=== PATIENT | male | born 1965 ===

== ENCOUNTER 2017-02-20 09:25 | Emergency (ER) | payer MEDICAID, OTHER ==
[2017-02-20 09:55] VITALS: RESP 20; TEMP 97.9; BMI 28.5
--- NOTE | 2017-02-20 10:18 | ED PDOC ---
Arrival/HPI - General Chief Complaint: Shortness Of Breath Time Seen by Provider: 02/20/17 10:07 Historian: Patient - History of Present Illness Narrative History of Present Illness (Text): 02/20/17 10:08 51 y/o male, pmh including htn, nkda, c/o difficulty breathing started this morning. Pt. stated that he was at home this morning taking his usual antihypertensive medications which been taking it for years, feeling the nose is stuffy which progress to shortness of breath when breathing through the nose , no night sweat, mild coughing, no palpitation, no numbness or tingling, no change in vision, no abdominal pain, no other medical or psychological complaints. Past Medical History - Provider Review Nursing Documentation Reviewed: Yes - Cardiac Hx Cardiac Disorders: Yes Hx Hypertension: Yes - Pulmonary Hx Respiratory Disorders: No - Neurological Hx Neurological Disorder: No - HEENT Hx HEENT Disorder: No - Renal Hx Renal Disorder: No - Endocrine/Metabolic Hx Endocrine Disorders: No - Hematological/Oncological Hx Blood Disorders: No - Integumentary Hx Dermatological Disorder: No - Musculoskeletal/Rheumatological Hx Musculoskeletal Disorders: No - Gastrointestinal Hx Gastrointestinal Disorders: No - Genitourinary/Gynecological Hx Genitourinary Disorders: No - Psychiatric Hx Psychophysiologic Disorder: No Hx Depression: No Hx Emotional Abuse: No Hx Physical Abuse: No Hx Substance Use: No - Anesthesia Hx Anesthesia: No - Suicidal Assessment Feels Threatened In Home Enviroment: No Family/Social History - Physician Review Nursing Documentation Reviewed: Yes Family/Social History: Unknown Family HX Smoking Status: Never Smoked Hx Alcohol Use: Yes Frequency of alcohol use: Socially Hx Substance Use: No Hx Substance Use Treatment: No Allergies/Home Meds Allergies/Adverse Reactions: Allergies No Known Allergies Allergy (Verified 11/24/11 11:12) Home Medications: Home Meds Medication Instructions Recorded Confirmed Losartan Potassium 25 mg PO DAILY 02/20/17 02/20/17 amLODIPine [Norvasc] 5 mg PO DAILY 02/20/17 02/20/17 hydroCHLOROthiazide [Hydrodiuril] 25 mg PO DAILY 02/20/17 02/20/17 Review of Systems - Review of Systems Constitutional: absent: Fatigue, Fevers Eyes: absent: Vision Changes ENT: Sinus Congestion. absent: Hearing Changes, Sore Throat, Rhinorrhea Respiratory: absent: SOB, Cough Cardiovascular: absent: Chest Pain Gastrointestinal: absent: Abdominal Pain, Nausea, Vomiting Skin: absent: Rash, Pruritis Neurological: absent: Headache, Dizziness, Focal Weakness Psychiatric: absent: Anxiety, Depression, Suicidal Ideation Physical Exam Vital Signs Reviewed: Yes Vital Signs Temp Pulse Resp BP Pulse Ox 02/20/17 11:26 88 20 146/99 H 100 02/20/17 09:51 97.9 F 75 20 117/73 96 Temperature: Afebrile Blood Pressure: Normal Pulse: Regular Respiratory Rate: Normal Appearance: Positive for: Well-Appearing, Non-Toxic, Comfortable Pain Distress: None Mental Status: Positive for: Alert and Oriented X 3 - Systems Exam Head: Present: Atraumatic, Normocephalic, Other (+ttp on the maxillary sinus region. ) Pupils: Present: PERRL Extroacular Muscles: Present: EOMI Conjunctiva: Present: Normal Ears: Present: NORMAL TM, Normal Canal. No: Erythema Mouth: Present: Moist Mucous Membranes Pharnyx: No: ERYTHEMA, EXUDATE, TONSILS ENLARGED Neck: Present: Normal Range of Motion Respiratory/Chest: Present: Decreased Breath Sounds (bilaterally). No: Respiratory Distress, Accessory Muscle Use, Wheezes, Rales, Retracting, Rhonchi , Tachypneic Cardiovascular: Present: Regular Rate and Rhythm, Normal S1, S2. No: Murmurs Abdomen: Present: Normal Bowel Sounds. No: Tenderness, Distention, Peritoneal Signs Back: Present: Normal Inspection Upper Extremity: Present: Normal Inspection. No: Cyanosis, Edema Lower Extremity: Present: Normal Inspection. No: Edema Neurological: Present: GCS=15, Speech Normal, Motor Func Grossly Intact, Gait Normal, Memory Normal Skin: Present: Warm, Dry, Normal Color. No: Rashes Psychiatric: Present: Alert, Oriented x 3, Normal Insight, Normal Concentration Medical Decision Making ED Course and Treatment: 02/20/17 10:26 -labs -chest xray -ekg -IVF/toradol/benadryl/duoneb -observe and reassess 02/20/17 12:06 -EKG: NSR @ 73 BPM, no ST elevation or depression, no T wave inversion -Labs are non-significant -BNP and D-dimer within normal limit. -Chest xray show no active disease. -Pt. feels completely relief after the medication given in the ER, asymptomatic now, will discharge home. -Discharge home with zithromax, flonase, zyrtec, bed rest, prednisone, albuterol MDI, stay hydrated, bed rest, follow up with your own pmd and ENT within 2 days, return to the ER for any new or worsening signs or symptoms. - Lab Interpretations Lab Results: 02/20/17 10:30 02/20/17 10:30 Lab Results 02/20/17 10:30: WBC 3.4 L, RBC 4.28, Hgb 13.7 L, Hct 40.0 L, MCV 93.5, MCH 32.0 , MCHC 34.3, RDW 12.7, Plt Count 227, MPV 10.1, Gran % 28.4 L, Lymph % (Auto) 61.9 H, Summit % (Auto) 7.6 H, Eos % (Auto) 1.8, Baso % (Auto) 0.3, Gran # 0.97 L , Lymph # 2.1, Summit # 0.3, Eos # 0.1, Baso # 0.01 02/20/17 10:30: Sodium 139, Potassium 4.2, Chloride 100, Carbon Dioxide 29, Anion Gap 14, BUN 13, Creatinine 0.9, Est GFR ( Amer) > 60, Est GFR (Non- Af Amer) > 60, Random Glucose 104, Calcium 9.8, Total Bilirubin 0.4, AST 57, ALT 83 H, Alkaline Phosphatase 56, NT-Pro-B Natriuret Pep < 11.1, Total Protein 8.1, Albumin 4.6, Globulin 3.4, Albumin/Globulin Ratio 1.4 02/20/17 10:30: D-Dimer, Quantitative < 200 I have reviewed the lab results: Yes Interpretation: No clinic. lab abnormalty - RAD Interpretation Radiology Orders: 02/20/17 11:07 CHEST PORTABLE [RAD] Stat no active disease Medicine Aide: Radiologist - Medication Orders Current Medication Orders: Discontinued Medications Albuterol/Ipratropium (Duoneb 3 Mg/0.5 Mg (3 Ml) Ud) 3 ml IH STAT STA Stop: 02/20/17 10:20 Last Admin: 02/20/17 10:57 Dose: 3 ml Diphenhydramine HCl (Benadryl) 50 mg IVP STAT STA Stop: 02/20/17 10:21 Last Admin: 02/20/17 10:56 Dose: 50 mg IVP Administration Document 02/20/17 10:56 CNR (Rec: 02/20/17 10:57 CNR [facility] – [id number]) Charges for Administration # of IVP Administrations 1 Sodium Chloride (Sodium Chloride 0.9%) 500 mls @ 999 mls/hr IV .Q31M STA Stop: 02/20/17 10:50 Last Admin: 02/20/17 10:56 Dose: 999 mls/hr eMAR Start Stop Document 02/20/17 10:56 CNR (Rec: 02/20/17 10:56 CNR [facility] – [id number]) Intravenous Solution Start Date 02/20/17 Start Time 10:40 Ketorolac Tromethamine (Toradol) 30 mg IVP STAT STA Stop: 02/20/17 10:21 Last Admin: 02/20/17 10:57 Dose: 30 mg MAR Pain Assessment Document 02/20/17 10:57 CNR (Rec: 02/20/17 10:57 CNR [facility] – [id number]) Pain Reassessment Is this a pain reassessment? Yes IVP Administration Document 02/20/17 10:57 CNR (Rec: 02/20/17 10:57 CNR [facility] – [id number]) Charges for Administration # of IVP Administrations 1 - PA / COUNTER D[employer] CARRIER / Resident Statement MD/DO has reviewed & agrees with the documentation as recorded. Disposition/Present on Arrival - Present on Arrival Any Indicators Present on Arrival: No History of DVT/PE: No History of Uncontrolled Diabetes: No Urinary Catheter: No History of Decub. Ulcer: No History Surgical Site Infection Following: None - Disposition Have Diagnosis and Disposition been Completed?: Yes Diagnosis: URI (upper respiratory infection), Nasal congestion Disposition: HOME/ ROUTINE Disposition Time: 12:09 Patient Plan: Discharge Condition: GOOD Additional Instructions: -Discharge home with zithromax, flonase, zyrtec, bed rest, prednisone, albuterol MDI, stay hydrated, bed rest, follow up with your own pmd and ENT within 2 days, return to the ER for any new or worsening signs or symptoms. Prescriptions: Albuterol HFA [Ventolin HFA 90 mcg/actuation (8 g)] 2 puff IH [id number] #1 inh Azithromycin [Zithromax] 250 mg PO DAILY #6 tab Cetirizine HCl [Zyrtec] 10 mg PO DAILY #10 capsule Fluticasone Propionate [Flonase Allergy Relief] 1 spray NS DAILY #1 spray.susp Prednisone 50 mg PO DAILY #5 tab Referrals: Pascual Goldberg DO [Staff Provider] - Follow up with primary Re Karimi MD [Staff Provider] - Follow up with primary Forms: WORK NOTE
[2017-02-20] MEDS ORDERED: Albuterol-Ipratrop 3 mg / 0.5 (3 ml) UD IH STA (10:19)
[2017-02-20] MEDS ORDERED: Sodium Chloride 0.9% 500 ML IV STA (10:20)
[2017-02-20] MEDS ORDERED: DiphenhydrAMINE 50 mg/ml Inj IVP STA (10:20)
[2017-02-20 10:45] LABS: BASO # 0.01 K/mm3 (0.0-2.0); BASO % 0.3 % (0.0-3.0); EOS # 0.1 (0.0-0.7); EOS % 1.8 % (1.5-5.0); GRAN # 0.97 (1.4-6.5); GRAN % 28.4 % (50.0-68.0); LYMPH # 2.1 (1.2-3.4); LYMPH % 61.9 % (22.0-35.0); MEAN CELL VOLUME 93.5 fl (80.0-105.0); MEAN CORPUSCULAR HGB CONC 34.3 g/dl (31.0-37.0); MEAN PLATELET VOLUME 10.1 fl (7.0-11.0); MONO # 0.3 (0.1-0.6); MONO % 7.6 % (1.0-6.0); RED CELL DISTRIBUTION WIDTH 12.7 % (11.5-14.5); WHITE BLOOD COUNT 3.4 10^3/ul (4.5-11.0)
[2017-02-20 10:52] LABS: ALB/GLOB RATIO 1.4 (1.1-1.8); ALKALINE PHOSPHATASE 56 U/L (38-126); ALT/SGPT 83 U/L (7-56); AST/SGOT 57 U/L (17-59); BILIRUBIN,TOTAL 0.4 mg/dL (0.2-1.3); BLOOD UREA NITROGEN 13 mg/dL (7-21); CALCIUM 9.8 mg/dL (8.4-10.5); CARBON DIOXIDE 29 mmol/L (21-33); CHLORIDE 100 mmol/L (98-107); GFR AFRICAN-AMERICAN > 60; GLUCOSE,RANDOM 104 mg/dL (70-110); POTASSIUM 4.2 mmol/L (3.6-5.0); SODIUM 139 mmol/L (132-148); TOTAL PROTEIN 8.1 g/dL (5.8-8.3)
[2017-02-20 12:02] VITALS: BP 146/99; PULSE 88; O2SAT 100
--- NOTE | 2017-02-20 12:20 | RAD ---
HISTORY: medical clearance COMPARISON: No prior. FINDINGS: LUNGS: No active pulmonary disease. PLEURA: No significant pleural effusion identified, no pneumothorax apparent. CARDIOVASCULAR: Normal. OSSEOUS STRUCTURES: No significant abnormalities. VISUALIZED UPPER ABDOMEN: Normal. OTHER FINDINGS: None. IMPRESSION: No active disease.
--- NOTE | 2017-02-21 00:15 | CARD ---
APPROVED REPORT EKG Measurement Heart [id number] <Conclusion> Normal sinus rhythm Normal ECG
== END 2017-02-20 12:24 | disposition home or self-care (01) ==
LOC: ED 09:25
DX: J06.9 Acute upper respiratory infection, unspecified (principal); R09.81 Nasal congestion; I10 Essential (primary) hypertension
CPT/HCPCS: 71010; 80053; 83880; 85025; 85378; 93005; 96374; 96375; 99284; J1200; J1885; J7040

== ENCOUNTER 2018-02-04 15:19 | Emergency (ER) | payer MEDICAID ==
[2018-02-04 15:19] VITALS: BMI 28.5
[2018-02-04 15:42] VITALS: BP 115/65; PULSE 64; RESP 18; TEMP 98.5; O2SAT 97
[2018-02-04] MEDS ORDERED: Lidocaine 5% Patch TD ONE (15:46)
--- NOTE | 2018-02-04 17:29 | ED PDOC ---
Arrival/HPI - General Chief Complaint: Back Pain Time Seen by Provider: 02/04/18 15:21 Historian: Patient, Family - History of Present Illness Narrative History of Present Illness (Text): 02/04/18 17:28 52 year old male who presents to the emergency department complaining of lower back pain that has been ongoing for the past month, but worsened today. Patient is primarily Cuban speaking, and agreed to have his family member translate for him. 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 His back pain occurs upon standing or when he starts to walk, but resolves after a minute of walking. He denies pain radiating to his lower extremities, and admits to urinating and having a normal bowel movement today. Patient denies fevers, chills, cough, shortness of breath, chest pain, dyspnea on exertion, abdominal pain, nausea, vomiting, diarrhea, neck pain, headache, dizziness, or any other complaint. Time/Duration: Other (1 month) Symptom Onset: Gradual Symptom Course: Worsening Activities at Onset: Light Context: Standing, Walking, Home, Work Past Medical History - Provider Review Nursing Documentation Reviewed: Yes - Infectious Disease Hx of Infectious Diseases: None - Cardiac Hx Cardiac Disorders: Yes Hx Hypertension: Yes - Pulmonary Hx Respiratory Disorders: No - Neurological Hx Neurological Disorder: No - HEENT Hx HEENT Disorder: No - Renal Hx Renal Disorder: No - Endocrine/Metabolic Hx Endocrine Disorders: No - Hematological/Oncological Hx Blood Disorders: No - Integumentary Hx Dermatological Disorder: No - Musculoskeletal/Rheumatological Hx Musculoskeletal Disorders: No - Gastrointestinal Hx Gastrointestinal Disorders: No - Genitourinary/Gynecological Hx Genitourinary Disorders: No - Psychiatric Hx Psychophysiologic Disorder: No Hx Depression: No Hx Emotional Abuse: No Hx Physical Abuse: No Hx Substance Use: No - Anesthesia Hx Anesthesia: No - Suicidal Assessment Feels Threatened In Home Enviroment: No Family/Social History - Physician Review Nursing Documentation Reviewed: Yes Family/Social History: No Known Family HX Smoking Status: Never Smoked Hx Alcohol Use: Yes Hx Substance Use: No Hx Substance Use Treatment: No Allergies/Home Meds Allergies/Adverse Reactions: Allergies No Known Allergies Allergy (Verified 02/04/18 15:45) Home Medications: Home Meds Medication Instructions Recorded Confirmed Losartan Potassium 50 mg PO DAILY 02/20/17 02/04/18 amLODIPine [Norvasc] 5 mg PO DAILY 02/20/17 02/04/18 hydroCHLOROthiazide [Hydrodiuril] 25 mg PO DAILY 02/20/17 02/04/18 Review of Systems - Physician Review All systems were reviewed & negative as marked: Yes - Review of Systems Constitutional: absent: Fevers, Night Sweats Respiratory: absent: SOB, Cough Cardiovascular: absent: Chest Pain, MELGAR Gastrointestinal: absent: Abdominal Pain, Constipation, Diarrhea, Nausea Genitourinary Male: absent: Frequency Musculoskeletal: Back Pain. absent: Neck Pain Neurological: absent: Headache, Dizziness Physical Exam Vital Signs Reviewed: Yes Vital Signs Temp Pulse Resp BP Pulse Ox 02/04/18 15:40 98.5 F 64 18 115/65 97 Temperature: Afebrile Blood Pressure: Normal Pulse: Regular Respiratory Rate: Normal Appearance: Positive for: Well-Appearing Mental Status: Positive for: Alert and Oriented X 3 - Systems Exam Head: Present: Atraumatic, Normocephalic Pupils: Present: PERRL Extroacular Muscles: Present: EOMI Conjunctiva: Present: Normal Mouth: Present: Moist Mucous Membranes Neck: Present: Normal Range of Motion Respiratory/Chest: Present: Clear to Auscultation, Good Air Exchange. No: Respiratory Distress, Accessory Muscle Use Cardiovascular: Present: Regular Rate and Rhythm, Normal S1, S2. No: Murmurs Abdomen: No: Tenderness, Distention, Peritoneal Signs Back: Present: Normal Inspection, Paraspinal Tenderness (lumbar paraspinal tenderness) Upper Extremity: Present: Normal Inspection. No: Cyanosis, Edema Lower Extremity: Present: Normal Inspection. No: Edema Neurological: Present: GCS=15, CN II-XII Intact, Speech Normal Skin: Present: Warm, Dry, Normal Color. No: Rashes Psychiatric: Present: Alert, Oriented x 3, Normal Insight, Normal Concentration Medical Decision Making ED Course and Treatment: 02/04/18 17:28 Impression: 52 year old male complaining of lower back pain, which worsened today. Differential Diagnosis included but are not limited to: Herniated disc Lumbar stenosis Plan: -- Valium -- Toradol -- Lidoderm -- Reassess and disposition Prior Visits: Notes and results from previous visits were reviewed. Progress Notes: - Medication Orders Current Medication Orders: Discontinued Medications Diazepam (Valium) 5 mg PO ONCE ONE; Protocol Stop: 02/04/18 15:47 Last Admin: 02/04/18 15:58 Dose: 5 mg Ketorolac Tromethamine (Toradol) 60 mg IM STAT STA Stop: 02/04/18 15:47 Last Admin: 02/04/18 15:57 Dose: 60 mg MAR Pain Assessment Document 02/04/18 15:57 EB (Rec: 02/04/18 15:[address]) Pain Reassessment Is this a pain reassessment? No Sleep Is patient sleeping during reassessment? No Presence of Pain Presence of Pain Yes Pain Scale Used Protocol: PSCALES Pain Scale Used Numeric Location Pain Location Body Site Back Description Intensity of Pain at present 8 IM Administration Charges Document 02/04/18 15:57 EB (Rec: 02/04/18 15:58 [facility]-) Charges for Administration # of IM Administrations 1 Lidocaine (Lidoderm) 1 ea TD ONCE ONE Stop: 02/04/18 15:47 Last Admin: 02/04/18 15:57 Dose: 1 ea MAR Transdermal Patch Site Document 02/04/18 15:57 EB (Rec: 02/04/18 15:[address]) Transdermal Patch Site Transdermal Patch Site Right Lower Back - Scribe Statement The provider has reviewed the documentation as recorded by the Scribdaniel Mooney Provider Scribe Attestation: All medical record entries made by the Scribe were at my direction and personally dictated by me. I have reviewed the chart and agree that the record accurately reflects my personal performance of the history, physical exam, medical decision making, and the department course for this patient. I have also personally directed, reviewed, and agree with the discharge instructions and disposition. Disposition/Present on Arrival - Present on Arrival Any Indicators Present on Arrival: No History of DVT/PE: No History of Uncontrolled Diabetes: No Urinary Catheter: No History of Decub. Ulcer: No History Surgical Site Infection Following: None - Disposition Have Diagnosis and Disposition been Completed?: Yes Diagnosis: Back pain Disposition: HOME/ ROUTINE Disposition Time: 17:27 Patient Plan: Discharge Condition: IMPROVED Discharge Instructions (ExitCare): Upper Back Pain (DC) Print Language: SLOVENIAN Additional Instructions: All medical record entries made by the Scribe were at my direction and personally dictated by me. I have reviewed the chart and agree that the record accurately reflects my personal performance of the history, physical exam, medical decision making, and the department course for this patient. I have also personally directed, reviewed, and agree with the discharge instructions and disposition. Prescriptions: Cyclobenzaprine [Cyclobenzaprine HCl] 10 mg PO PRN PRN #6 tab PRN Reason: Muscle Spasm Lidocaine 5% [Lidoderm] 1 each TP Q12 #6 patch Naproxen 500 mg PO BID #10 tab Referrals: Nury Guillen MD [Medical Doctor] - Follow up with primary [facility] [place] - Follow up with primary Forms: [facility] (Cuban), WORK NOTE
== END 2018-02-04 17:31 | disposition home or self-care (01) ==
LOC: ED 15:19
DX: M54.5 Low back pain (principal); I10 Essential (primary) hypertension
CPT/HCPCS: 96372; 99282; J1885

== ENCOUNTER 2018-06-30 12:16 | Emergency (ER) | payer MEDICAID ==
[2018-06-30 12:20] VITALS: BMI 29.0
[2018-06-30 12:24] VITALS: RESP 18; TEMP 97.7
[2018-06-30] MEDS ORDERED: Lidocaine 5% Patch TD STA (12:41)
--- NOTE | 2018-06-30 12:47 | ED PDOC ---
Arrival/HPI - General Chief Complaint: Back Pain Time Seen by Provider: 06/30/18 12:23 Historian: Patient, Family (Sister) - History of Present Illness Narrative History of Present Illness (Text): 06/30/18 12:50 53 y/o male with PMH of back pain and sciatica presents to the ED c/o left sided lower back pain x 7 years that worsened over the last week. Pain is sharp, worse with movement and lying flat. The pain radiates into his left buttock and down his left leg. States this is typical of his usual back pain. He has been doing more heavy lifting at his work over the last month. Has taken tylenol for pain without relief. Pt has not seen an orthopedic or his PMD for his back complaints. Pt did not take his home medications today. Denies fever, chills, abdominal pain, nausea, vomiting, urinary symptoms, numbness, weakness, paresthesias, saddle anesthesia, testicular pain/swelling, bowel/bladder incontinence, or any other associated symptoms. Past Medical History - Provider Review Nursing Documentation Reviewed: Yes - Infectious Disease Hx of Infectious Diseases: None - Cardiac Hx Cardiac Disorders: Yes Hx Hypertension: Yes - Pulmonary Hx Respiratory Disorders: No - Neurological Hx Neurological Disorder: No - HEENT Hx HEENT Disorder: No - Renal Hx Renal Disorder: No - Endocrine/Metabolic Hx Endocrine Disorders: No - Hematological/Oncological Hx Blood Disorders: No - Integumentary Hx Dermatological Disorder: No - Musculoskeletal/Rheumatological Hx Musculoskeletal Disorders: No - Gastrointestinal Hx Gastrointestinal Disorders: No - Genitourinary/Gynecological Hx Genitourinary Disorders: No - Psychiatric Hx Psychophysiologic Disorder: No Hx Depression: No Hx Emotional Abuse: No Hx Physical Abuse: No Hx Substance Use: No - Anesthesia Hx Anesthesia: No - Suicidal Assessment Feels Threatened In Home Enviroment: No Family/Social History - Physician Review Nursing Documentation Reviewed: Yes Family/Social History: No Known Family HX Smoking Status: Never Smoked Hx Alcohol Use: Yes Hx Substance Use: No Hx Substance Use Treatment: No Allergies/Home Meds Allergies/Adverse Reactions: Allergies No Known Allergies Allergy (Verified 02/04/18 15:45) Home Medications: Home Meds Medication Instructions Recorded Confirmed Losartan Potassium 50 mg PO DAILY 02/20/17 02/04/18 amLODIPine [Norvasc] 5 mg PO DAILY 02/20/17 02/04/18 hydroCHLOROthiazide [Hydrodiuril] 25 mg PO DAILY 02/20/17 02/04/18 Review of Systems - Review of Systems Constitutional: Normal. absent: Fevers ENT: Normal. absent: Sore Throat, Sinus Congestion Respiratory: Normal. absent: SOB, Cough Cardiovascular: Normal. absent: Chest Pain, Palpitations, Syncope Gastrointestinal: Normal. absent: Abdominal Pain, Stool Changes, Constipation, Diarrhea, Nausea, Vomiting, Appetite Changes Genitourinary Male: Normal. absent: Dysuria, Frequency, Hematuria, Urinary Output Changes Musculoskeletal: Back Pain, Other (left leg pain) Skin: Normal. absent: Rash, Cellulitis Neurological: Normal. absent: Headache, Dizziness Physical Exam Vital Signs Reviewed: Yes Vital Signs Temp Pulse Resp BP Pulse Ox 06/30/18 12:17 97.7 F 68 18 146/100 H 98 Temperature: Afebrile Blood Pressure: Hypertensive Pulse: Regular Respiratory Rate: Normal Appearance: Positive for: Well-Appearing, Non-Toxic, Comfortable Pain Distress: Mild Mental Status: Positive for: Alert and Oriented X 3 - Systems Exam Head: Present: Atraumatic, Normocephalic Pupils: Present: PERRL Extroacular Muscles: Present: EOMI Conjunctiva: Present: Normal Mouth: Present: Moist Mucous Membranes Neck: Present: Normal Range of Motion. No: Meningeal Signs, MIDLINE TENDERNESS, Paraspinal Tenderness Respiratory/Chest: Present: Clear to Auscultation, Good Air Exchange. No: Respiratory Distress, Accessory Muscle Use Cardiovascular: Present: Regular Rate and Rhythm, Normal S1, S2, Peripheal Pu lses Present Abdomen: Present: Normal Bowel Sounds. No: Tenderness, Distention, Peritoneal Signs, Rebound, Guarding Back: Present: Paraspinal Tenderness (left lower thoracic and lumbar), Pain with Leg Raise (pain to lower back on bilateral leg raise. L>R). No: CVA Tenderness, Midline Tenderness Upper Extremity: Present: Normal Inspection, Normal ROM, NORMAL PULSES, Neurovascularly Intact, Capillary Refill < 2s. No: Cyanosis, Edema, Temperature Abnormalties Lower Extremity: Present: Normal Inspection, CALF TENDERNESS (left), NORMAL PULSES, Normal ROM, Neurovascularly Intact, Capillary Refill < 2 s. No: Edema, Tenderness, Swelling, Temperature Abnormalties Neurological: Present: GCS=15, CN II-XII Intact, Speech Normal, Motor Func Grossly Intact, Normal Sensory Function, Gait Normal Skin: Present: Warm, Dry, Normal Color. No: Rashes Psychiatric: Present: Alert, Oriented x 3, Normal Insight, Normal Concentration, Normal Affect, Normal Mood Medical Decision Making ED Course and Treatment: 06/30/18 12:44 Initial Plan: * Left leg venous duplex * Lumbar spine XR * Left hip XR * UA * Toradol * Valium * Lidoderm Patch * Reassess and Disposition UA unremarkable Xrays show no acute pathology Venous duplex prelim read negative for DVT Patient reports complete resolution of symptoms with medication. Continues to deny saddle anesthesia, abdominal pain, numbness, weakness, parethesias, bowel/bladder incontinence. Advised PMD and orthopedic followup. Diagnostic testing results and plan of care discussed with patient. Strict instructions given regarding prescription use, importance of followup, and signs/symptoms to return to ER including worsening pain, saddle anesthesia, abdominal pain, numbness, weakness, parethesias, bowel/bladder incontinence or any other new/worsening symptoms. Pt verbalized understanding of discussion. Patient is A&Ox3, ambulating with steady gait, with vital signs stable for discharge. - Lab Interpretations Lab Results: Lab Results 06/30/18 12:58: Urine Color Yellow, Urine Appearance Clear, Urine pH 7.0, Ur Specific [place] 1.015, Urine Protein Negative, Urine Glucose (UA) Negative, Urine Ketones Negative, Urine Blood Negative, Urine Nitrate Negative, Urine Bilirubin Negative, Urine Urobilinogen 0.2, Ur Leukocyte Esterase Negative I have reviewed the lab results: Yes Interpretation: All labs normal - RAD Interpretation Narrative RAD Interpretations (Text): 06/30/18 14:47 Left Hip XR: FINDINGS: BONES: Normal. No fracture. JOINTS: Normal. SOFT TISSUES: Normal. OTHER FINDINGS: None. IMPRESSION: Normal left hip radiographs. Lumbar Spine XR: FINDINGS: BONES: Normal alignment. No listhesis. No fracture. DISC SPACES: Unremarkable. OTHER FINDINGS: None. IMPRESSION: Unremarkable radiographs of the lumbar spine. Radiology Orders: 06/30/18 12:39 HIP MIN 2V W/ PELVIS LT [RAD] Stat LS SPINE WITH OBL > 18 YRS OLD [RAD] Stat DUPLEX LOWER EXTRM VEIN LEFT [US] Stat Toolroom Attendant: Radiologist - Medication Orders Current Medication Orders: Diazepam (Valium) 5 mg PO ONCE ONE; Protocol Stop: 06/30/18 12:42 Ketorolac Tromethamine (Toradol) 60 mg IM STAT STA Stop: 06/30/18 12:42 Lidocaine (Lidoderm) 1 ea TD STAT STA Stop: 06/30/18 12:42 Disposition/Present on Arrival - Present on Arrival Any Indicators Present on Arrival: No History of DVT/PE: No History of Uncontrolled Diabetes: No Urinary Catheter: No History of Decub. Ulcer: No History Surgical Site Infection Following: None - Disposition Have Diagnosis and Disposition been Completed?: Yes Diagnosis: Back pain with sciatica Disposition: HOME/ ROUTINE Disposition Time: 15:00 Patient Plan: Discharge Condition: IMPROVED Discharge Instructions (ExitCare): Low Back Pain in Adults, Sciatica (DC), Sciatica Exercises Print Language: TURKISH Additional Instructions: Ibuprofeno cada 8 horas segn sea necesario para el dolor, con alimentos. Flexeril todas las noches antes de acostarse segn sea necesario para el espasmo muscular. Harman, no actividad vigorosa. Seguimiento con mdico ortopdico dentro de 2 storm. Seguimiento con mdico primario en 2 storm. Regrese a la lennox de emergencias con cualquier sntoma nuevo o que empeore Prescriptions: Cyclobenzaprine [Cyclobenzaprine HCl] 10 mg PO HS PRN #7 tab PRN Reason: Muscle Spasm Ibuprofen [Motrin Tab] 600 mg PO Q8 PRN #30 tab PRN Reason: Pain, Moderate (4-7) Referrals: [facility] [Outside] - Follow up with primary Orth[facility] at [Outside] - Follow up with primary Aroldo Flores DO [Staff Provider] - Follow up with primary Nury Guillen MD [Medical Doctor] - Follow up with primary Forms: [employer] (Faroese), WORK NOTE
[2018-06-30 13:16] LABS: URINE BILIRUBIN NEGATIVE (NEGATIVE); URINE BLOOD NEGATIVE (NEGATIVE); URINE GLUCOSE (UA) NEGATIVE (NEGATIVE); URINE LEUKOCYTE ESTERASE NEGATIVE Leu/uL (NEGATIVE); URINE PROTEIN NEGATIVE mg/dL (<30 mg/dL); URINE UROBILINOGEN 0.2 E.U./dL (<1 E.U./dL)
[2018-06-30 13:17] LABS: URINE APPEARANCE CLEAR (CLEAR); URINE COLOR YELLOW (YELLOW)
[2018-06-30 14:14] VITALS: PULSE 78
--- NOTE | 2018-06-30 14:27 | RAD ---
Date of service: 06/30/2018 PROCEDURE: Radiographs of the Lumbar Spine. HISTORY: lower back pain COMPARISON: No prior. TECHNIQUE: 5 views obtained. FINDINGS: BONES: Normal alignment. No listhesis. No fracture. DISC SPACES: Unremarkable. OTHER FINDINGS: None. IMPRESSION: Unremarkable radiographs of the lumbar spine.
--- NOTE | 2018-06-30 14:28 | RAD ---
PROCEDURE: Left Hip and pelvis x-ray Radiographs. HISTORY: left hip pain COMPARISON: None. TECHNIQUE: Three views obtained. FINDINGS: BONES: Normal. No fracture. JOINTS: Normal. SOFT TISSUES: Normal. OTHER FINDINGS: None. IMPRESSION: Normal left hip radiographs.
[2018-06-30 15:26] VITALS: BP 140/75; O2SAT 99
--- NOTE | 2018-07-02 09:52 | US ---
PROCEDURE: Left lower extremity venous US HISTORY: Leg pain and swelling. Evaluate for DVT. PHYSICIAN(S): Alonso Sheldon MD. TECHNIQUE: Duplex sonography and color-flow Doppler with graded compression were used to evaluate the deep venous system of the left lower extremity. FINDINGS: The visualized deep venous system of the left lower extremity is sonographically normal and compressible. Normal wave forms and augmentation are seen. There is no sonographic evidence for deep venous thrombosis in the visualized segments of the left lower extremity. IMPRESSION: 1. No sonographic evidence for deep venous thrombosis in the visualized segments of the left lower extremity.
== END 2018-06-30 15:25 | disposition home or self-care (01) ==
LOC: ED 12:16
DX: M54.42 Lumbago with sciatica, left side (principal); I10 Essential (primary) hypertension
CPT/HCPCS: 72110; 73502; 81003; 93971; 96372; 99283; J1885

== ENCOUNTER 2018-07-02 14:21 | Emergency (ER) | payer MEDICAID ==
[2018-07-02 14:21] VITALS: BMI 29.0
--- NOTE | 2018-07-02 15:52 | ED PDOC ---
Arrival/HPI - General Chief Complaint: Back Pain Time Seen by Provider: 07/02/18 15:37 Historian: Patient - History of Present Illness Narrative History of Present Illness (Text): 07/02/18 19:53 53 y/o male with PMH of HTN, chronic back pain, and sciatica presents to the ED c/o back pain x 1 week. Pt was seen in ED 2 days ago and given prescription for ibuprofen and flexeril on discharge after a negative workup to include UA, hip and lumbar spine Xrays, and left leg venous duplex. Pain is left sided, and radiates into left buttock down left leg, typical of his usual sciatic pain. Pt states he continues to have pain since discharge, prompting return to ER. He has not followed up with his PMD or the orthopedic doctor. Denies fever, chills, saddle anesthesia, bowel/bladder incontinence, urinary symptoms, leg numbness/weakness, paresthesias, abdominal pain, nausea, vomiting, chest pain, SOB, or any other associated complaints. Past Medical History - Provider Review Nursing Documentation Reviewed: Yes - Infectious Disease Hx of Infectious Diseases: None - Cardiac Hx Cardiac Disorders: Yes Hx Hypertension: Yes - Pulmonary Hx Respiratory Disorders: No - Neurological Hx Neurological Disorder: No - HEENT Hx HEENT Disorder: No - Renal Hx Renal Disorder: No - Endocrine/Metabolic Hx Endocrine Disorders: No - Hematological/Oncological Hx Blood Disorders: No - Integumentary Hx Dermatological Disorder: No - Musculoskeletal/Rheumatological Hx Musculoskeletal Disorders: No - Gastrointestinal Hx Gastrointestinal Disorders: No - Genitourinary/Gynecological Hx Genitourinary Disorders: No - Psychiatric Hx Psychophysiologic Disorder: No Hx Depression: No Hx Emotional Abuse: No Hx Physical Abuse: No Hx Substance Use: No - Anesthesia Hx Anesthesia: No Hx Anesthesia Reactions: No Hx Malignant Hyperthermia: No - Suicidal Assessment Feels Threatened In Home Enviroment: No Family/Social History - Physician Review Nursing Documentation Reviewed: Yes Family/Social History: No Known Family HX Smoking Status: Never Smoked Hx Alcohol Use: Yes Hx Substance Use: No Hx Substance Use Treatment: No Allergies/Home Meds Allergies/Adverse Reactions: Allergies No Known Allergies Allergy (Verified 02/04/18 15:45) Home Medications: Home Meds Medication Instructions Recorded Confirmed Losartan Potassium 50 mg PO DAILY 02/20/17 02/04/18 amLODIPine [Norvasc] 5 mg PO DAILY 02/20/17 02/04/18 hydroCHLOROthiazide [Hydrodiuril] 25 mg PO DAILY 02/20/17 02/04/18 Review of Systems - Review of Systems Constitutional: Normal. absent: Fevers Eyes: Normal. absent: Vision Changes ENT: Normal. absent: Sore Throat, Sinus Congestion Respiratory: Normal. absent: SOB, Cough Cardiovascular: Normal. absent: Chest Pain Gastrointestinal: Normal. absent: Abdominal Pain, Stool Changes, Nausea, Vomiting, Appetite Changes Genitourinary Male: Normal. absent: Dysuria, Frequency, Hematuria, Urinary Output Changes Musculoskeletal: Back Pain, Other (left leg pain) Skin: Normal. absent: Rash, Cellulitis Neurological: Normal. absent: Headache, Dizziness, Other (NO numbness/paresthesias, NO saddle anesthesia or bowel/bladder incontinence) Physical Exam Vital Signs Reviewed: Yes Vital Signs Temp Pulse Resp BP Pulse Ox 07/02/18 14:21 98.2 F 71 18 144/90 98 Temperature: Afebrile Blood Pressure: Normal Pulse: Regular Respiratory Rate: Normal Appearance: Positive for: Well-Appearing, Non-Toxic, Comfortable Pain Distress: None Mental Status: Positive for: Alert and Oriented X 3 - Systems Exam Head: Present: Atraumatic, Normocephalic Pupils: Present: PERRL Extroacular Muscles: Present: EOMI Conjunctiva: Present: Normal Mouth: Present: Moist Mucous Membranes Neck: Present: Normal Range of Motion. No: Meningeal Signs Respiratory/Chest: Present: Clear to Auscultation, Good Air Exchange. No: Respi ratory Distress, Accessory Muscle Use Cardiovascular: Present: Regular Rate and Rhythm, Normal S1, S2, Peripheal Pulses Present Abdomen: Present: Normal Bowel Sounds. No: Tenderness, Distention, Peritoneal Signs, Rebound, Guarding, Other (no pulsatile mass) Back: Present: Normal Inspection, Paraspinal Tenderness (left), Pain with Leg Raise (left), Other (tenderness over left SI joint). No: CVA Tenderness, Midline Tenderness Upper Extremity: Present: Normal Inspection, Normal ROM, NORMAL PULSES, Neurovascularly Intact, Capillary Refill < 2s. No: Cyanosis, Edema, Temperature Abnormalties Lower Extremity: Present: Normal Inspection, NORMAL PULSES, Normal ROM, Neurova scularly Intact, Capillary Refill < 2 s. No: Edema, Temperature Abnormalties Neurological: Present: GCS=15, CN II-XII Intact, Speech Normal, Motor Func Grossly Intact, Normal Sensory Function, Gait Normal Skin: Present: Warm, Dry, Normal Color. No: Rashes Psychiatric: Present: Alert, Oriented x 3, Normal Insight, Normal Concentration, Normal Affect, Normal Mood Medical Decision Making ED Course and Treatment: Initial Plan: * Lumbar Spine CT * Tib/fib XR * Toradol * Valium Diagnostic testing results reviewed from prior visit. Xrays and venous duplex negative. Patient has no focal neurologic deficits, no complaints of abdominal pain, chest pain, numbness, weakness, paresthesias, saddle anesthesia, bowel/bladder retention or incontinence. States he has been lifting more at work and this pain is typical of his back pain exacerbations. Has not seen a specialist for this pain. 17:24 On re-evaluation patient reports improvement in pain. Pending imaging. 18:45 Imaging negative. Advised PMD and orthopedic followup. Diagnostic testing results and plan of care discussed with patient. Strict instructions given regarding prescription use, importance of followup, and signs/symptoms to return to ER including saddle anesthesia, numbness, weakness, paresthesias, or any other new/worsening symptoms. Pt verbalized understanding of discussion. Patient is A&Ox3, ambulating with steady gait, with vital signs stable for discharge. Encounter translated by son with patient's consent. - RAD Interpretation Narrative RAD Interpretations (Text): 07/02/18 17:[address]: FINDINGS: VERTEBRAE: Unremarkable. No fracture. Normal alignment. DISCS/SPINAL CANAL/NEURAL FORAMINA: L1-2: Unremarkable. L2-3: Unremarkable. L3-4: Unremarkable. L4-5: Unremarkable. L5-S1: Unremarkable. PARASPINAL SOFT TISSUES: Unremarkable. OTHER FINDINGS: None IMPRESSION: Unremarkable CT of Lumbar Spine. Radiology Orders: 07/02/18 15:41 LUMBAR SPINE W/O CONTRAST [CT] Stat Senior Product Development Manager: Radiologist - Medication Orders Current Medication Orders: Discontinued Medications Diazepam (Valium) 5 mg PO ONCE ONE; Protocol Stop: 07/02/18 15:44 Ketorolac Tromethamine (Toradol) 60 mg IM STAT STA Stop: 07/02/18 15:44 Disposition/Present on Arrival - Present on Arrival Any Indicators Present on Arrival: No History of DVT/PE: No History of Uncontrolled Diabetes: No Urinary Catheter: No History of Decub. Ulcer: No History Surgical Site Infection Following: None - Disposition Have Diagnosis and Disposition been Completed?: Yes Diagnosis: Low back pain with sciatica Disposition: HOME/ ROUTINE Disposition Time: 17:47 Patient Plan: Discharge Condition: IMPROVED Discharge Instructions (ExitCare): Low Back Pain in Adults, Sciatica (DC), Back Flexion Stretching Exercises Print Language: UKRAINIAN Additional Instructions: Tramadol cada 8 horas segn sea necesario para el dolor maggi Ibuprofeno cada 8 horas segn sea necesario para el dolor moderado Lidoderm parches diarios. Seguimiento con ortopedia en 2 storm. Seguimiento con primaria en 2 storm. Regrese a la lennox de emergencias con cualquier sntoma nuevo o que empeore. Prescriptions: Methylprednisolone [Medrol Dose Pack (21 tabs)] 4 mg PO DAILY #21 mg traMADol [Ultram] 50 mg PO Q8 PRN #12 tab PRN Reason: Pain, Severe (8-10) Referrals: Aroldo Flores DO [Staff Provider] - Follow up with primary Forms: [employer] (Bengali), WORK NOTE
--- NOTE | 2018-07-02 17:34 | CT ---
Date of service: 07/02/2018 PROCEDURE: CT Lumbar Spine without contrast HISTORY: left sided lower back pain, severe COMPARISON: None available. TECHNIQUE: Axial computed tomography images were obtained of the lumbar spine without the use of intravenous contrast. Coronal and sagittal reformatted images were created and reviewed. Radiation dose: Total exam DLP = 729.89 mGy-cm. This CT exam was performed using one or more of the following dose reduction techniques: Automated exposure control, adjustment of the mA and/or kV according to patient size, and/or use of iterative reconstruction technique. FINDINGS: VERTEBRAE: Unremarkable. No fracture. Normal alignment. DISCS/SPINAL CANAL/NEURAL FORAMINA: L1-2: Unremarkable. L2-3: Unremarkable. L3-4: Unremarkable. L4-5: Unremarkable. L5-S1: Unremarkable. PARASPINAL SOFT TISSUES: Unremarkable. OTHER FINDINGS: None. IMPRESSION: Unremarkable CT of Lumbar Spine.
--- NOTE | 2018-07-02 18:08 | RAD ---
Date of service: 07/02/2018 PROCEDURE: Radiographs of the left tibia and fibula. HISTORY: calf pain COMPARISON: None available. TECHNIQUE: Frontal and lateral views obtained. 2 views obtained. FINDINGS: BONES: No fracture or destructive lesion. JOINT SPACES: Unremarkable. OTHER FINDINGS: None. IMPRESSION: Unremarkable radiographs of the left tibia and fibula.
[2018-07-02 18:11] VITALS: BP 138/73; RESP 17; TEMP 98.1; O2SAT 99
[2018-07-02 18:16] VITALS: PULSE 89
== END 2018-07-02 18:14 | disposition home or self-care (01) ==
LOC: ED 14:21
DX: M54.40 Lumbago with sciatica, unspecified side (principal); I10 Essential (primary) hypertension
CPT/HCPCS: 72131; 73590; 96372; 99284; J1885